=== PATIENT | female | born 1950 | race Caucasian/White ===

== ENCOUNTER 2018-11-22 16:59 | Inpatient (IN) | payer BC ==
[~2018-11-22] VITALS: Ht 157.5 cm; Wt 54.7 kg
[~2018-11-22 16:59] MED LIST: ACET325 PO; ACETAMINOPHEN650 MG PO; ASPI81CH PO; Augmentin 875-1 EACH PO; BUPR150ER PO; BUSP5 PO; CENTRUM SILVER1 EAC3 PO; ESCI10 PO; ESCI20 PO; LEVSOD100 PO; LEVSOD75 PO; LISI20 PO; LOPE2C PO; LORA1 PO; METF500 PO; METFORMIN HCL500 MG PO; Mucinex1200 MG PO; OMEP20ER PO; Pravastatin Sod40 MG PO; Prednisone20 MG PO; VITAMIN D35000 UNIT PO; ZESTORETIC 20-121 E1 PO
[2018-11-22 18:07] LABS: BASOPHILS ABSOLUTE AUTO 0.05 K/mm3 (0.00-0.23); BASOPHILS PERCENT AUTO 0 % (0-2); EOSINOPHILS ABSOLUTE AUTO 0.11 K/mm3 (0.00-0.68); EOSINOPHILS PERCENT AUTO 1 % (0-6); Hematocrit 41.5 % (33.0-51.0); Hemoglobin 13.5 g/dL (11.5-16.0); IMMATURE GRAN ABSOLUTE AUTO 0.07 K/mm3 (0.00-0.10); IMMATURE GRAN PERCENT AUTO 1 % (0-1); LYMPHOCYTES ABSOLUTE AUTO 1.78 K/mm3 (0.84-5.20); LYMPHOCYTES PERCENT AUTO 15 % (21-46); MONOCYTES ABSOLUTE AUTO 0.95 K/mm3 (0.16-1.47); MONOCYTES PERCENT AUTO 8 % (4-13); Mean Corpuscular HGB 32.1 pg (26.0-34.0); Mean Corpuscular HGB Conc 32.5 g/dL (31.5-36.5); Mean Corpuscular Volume 99 fL (80-100); Mean Platelet Volume 9.2 fL (9.1-12.4); NEUTROPHILS ABSOLUTE AUTO 8.58 K/mm3 (1.96-9.15); NEUTROPHILS PERCENT AUTO 74 % (41-73); Platelet Count 592 K/mm3 (150-400); RDW Coefficient Variation 19.5 % (11.7-14.2); RDW Standard Deviation 69.2 fL (35.1-46.3); Red Blood Cell Count 4.21 M/mm3 (3.80-5.20); White Blood Cell Count 11.54 K/mm3 (4.00-11.30)
[2018-11-22 18:22] LABS: Magnesium, Blood 1.6 mg/dL (1.6-2.4)
[2018-11-22 18:28] LABS: Albumin, Blood 3.7 g/dL (3.4-5.0); Albumin/Globulin Ratio 0.8 (0.8-1.8); Bilirubin, Total 0.2 mg/dL (0.1-1.0); Bun/Creatinine Ratio 31.4 (12.0-20.0); Calcium, Blood 9.2 mg/dL (8.5-10.1); Creatinine, Blood 2.42 mg/dL (0.40-1.00); Globulin, Blood 4.9 g/dL (2.2-4.0); Potassium, Blood 4.4 mmol/L (3.5-5.5); Thyroid Stimulating Hormone 1.29 uIU/mL (0.360-4.800); Total Protein, Blood 8.6 g/dL (6.4-8.2)
[2018-11-22 21:58] LABS: Adenovirus F 40/41 Not Detected (NOT DETECT); Astrovirus Not Detected (NOT DETECT); Campylobacter Sp Not Detected (NOT DETECT); Cryptosporidium Not Detected (NOT DETECT); Cyclospora Cayetanensis Not Detected (NOT DETECT); E. Coli O157 Not Detected (NOT DETECT); Entamoeba Histolytica Not Detected (NOT DETECT); Enteroaggregative E. coli-EAEC Not Detected (NOT DETECT); Enteropathogenic E. coli-EPEC Not Detected (NOT DETECT); Enterotoxigenic E. coli-ETEC Not Detected (NOT DETECT); Giardia Lamblia Not Detected (NOT DETECT); Norovirus GI/GII Not Detected (NOT DETECT); Plesiomonas Shigelloides Not Detected (NOT DETECT); Rotavirus A Not Detected (NOT DETECT); Salmonella Sp Not Detected (NOT DETECT); Sapovirus Not Detected (NOT DETECT); Shiga Toxin-prod E. coli-STEC Not Detected (NOT DETECT); Shigella/Enteroin E. coli-EIEC Not Detected (NOT DETECT); Vibrio Cholerae Not Detected (NOT DETECT); Vibrio Sp Not Detected (NOT DETECT); Yersinia Enterocolitica Not Detected (NOT DETECT)
--- NOTE | 2018-11-22 22:00 | NUR ---
ADMIT PT ARRIVED TO ICU 11 PCU STATUS AT 2124 VIA ER BED. PT IS AWAKE, ALERT, AND ORIENTED. PT STOOD UP FROM ER BED AND WALKED TO TOILET IN ICU ROOM. PT WITH LIQUID BM, STOOL SAMPLE COLLECTED AND SENT. PT COMPLAINS OF GENERALIZED FATIGUE, BUT DENIES PAIN OR DISCOMFORT. VITAL SIGNS STABLE. PT ON ROOM AIR. LR STARTED AT 125 ML/HR. WILL CONTINUE TO MONITOR.
[2018-11-22 22:41] LABS: Bun/Creatinine Ratio 34.7 (12.0-20.0); Calcium, Blood 8.4 mg/dL (8.5-10.1); Creatinine, Blood 1.96 mg/dL (0.40-1.00); Potassium, Blood 3.6 mmol/L (3.5-5.5)
--- NOTE | 2018-11-23 06:09 | NUR ---
SHIFT SUMMARY NO ACUTE CHANGES THIS SHIFT. PT HAS SLEPT OFF AND ON THROUGHOUT THE NIGHT. PT HAS DENIED PAIN, NAUSEA, OR SOB. PT CONTINUES TO HAVE DIARRHEA WHEN UP TO THE BSC. PT VOIDING WELL. VITAL SIGNS HAVE REMAINED STABLE. PT ON ROOM AIR. PT HAS REPOSITIONED SELF INDEPENDENTLY IN BED. LR INFUSING AT 125 ML/HR. WILL CONTINUE TO MONITOR AND REPORT OFF TO ONCOMING RN.
[2018-11-23 06:44] LABS: Hematocrit 33.1 % (33.0-51.0); Mean Corpuscular HGB Conc 33.2 g/dL (31.5-36.5); Mean Platelet Volume 9.2 fL (9.1-12.4); Platelet Count 511 K/mm3 (150-400); RDW Coefficient Variation 18.8 % (11.7-14.2); RDW Standard Deviation 65.4 fL (35.1-46.3); Red Blood Cell Count 3.45 M/mm3 (3.80-5.20); White Blood Cell Count 9.53 K/mm3 (4.00-11.30)
[2018-11-23 06:51] LABS: Albumin/Globulin Ratio 0.8 (0.8-1.8); Bilirubin, Total 0.3 mg/dL (0.1-1.0); Bun/Creatinine Ratio 40.6 (12.0-20.0); Calcium, Blood 8.5 mg/dL (8.5-10.1); Creatinine, Blood 1.43 mg/dL (0.40-1.00); Globulin, Blood 3.8 g/dL (2.2-4.0); Potassium, Blood 3.8 mmol/L (3.5-5.5); Total Protein, Blood 6.8 g/dL (6.4-8.2)
[2018-11-23 07:05] LABS: Mean Corpuscular Volume 96 fL (80-100)
--- NOTE | 2018-11-23 08:33 | NUR ---
ECHOCARDIOGRAM COMPLETE
--- NOTE | 2018-11-23 10:56 | NUR ---
0715-ASSUMED CARE OF PT. PT IS ALERT AND ORIENTED. DENIES PAIN. HELPED PT TO THE BEDSIDE COMMODE. PT IS STEADY ON HER FEET. 0800-PT SEEN BY DR. STARR UPDATED HIM OF PT'S STATUS. ECHOCARDIOGRAM GOING ON AT THIS TIME. 1056-CURRENTLY PT IS SLEEPING. DENIES PAIN PAIN.
--- NOTE | 2018-11-23 16:34 | NUR ---
TRIED TO CALL FOR REPORT. RN, NOT READY FOR REPORT YET.
--- NOTE | 2018-11-23 17:00 | NUR ---
REPORT GIVEN TO SAMAN CAMPOS IN MEDICAL FLOOR. PT WILL BE TRANSFERED TO ROOM 306.
--- NOTE | 2018-11-23 17:17 | NUR ---
PT WAS TRANSFERED TO ROOM 306 @ 1715
--- NOTE | 2018-11-23 17:24 | NUR ---
PATIENT TRASFERRED FROM ICU TO ROOM 306, REPORT RECEIVED FROM SAMAN MORRISSEY. PATIENT SWITCHED TO REGULAR DIET, DENIES ANY NAUSEA OR ABDOMINAL PAIN AT THIS TIME. SR ON TELE PER REPORT, AWAITING TELE BOX FROM PCU. DENIES ANY CHEST PAIN, LUNGS CLEAR, ON RA. TRANSFERRED FROM W/C TO BED WITH SBA. 20G IV TO L WRIST WNL AND SL. PATIENT ORIENTED TO ROOM AND USE OF CALL LIGHT. DENIES ANY NEEDS AT THIS TIME.
--- NOTE | 2018-11-24 01:22 | NUR ---
11/23/18 2102 PT LYING IN BED, DENIES ANY DISCOMFORT AT THIS TIME. TELE NSR AT 90. NO OTHER APPARENT SIGNS OF DISTRESS. CALL LIGHT IS IN REACH.
--- NOTE | 2018-11-24 01:24 | NUR ---
PT LYING IN BED, EYES CLOSED, APPEARS TO BE RESTING. BREATHING IS EVEN, UNLABORED. NO APPARENT SIGNS OF DISTRESS. CALL LIGHT IS IN REACH.
--- NOTE | 2018-11-24 01:24 | NUR ---
11/23/18 2310 PT REQUESTED AND RECIEVED TYLENOL. WILL EVAL FOR EFFECT. NO OTHER APPARENT SIGNS OF DISTRESS. CALL LIGHT IS IN REACH.
--- NOTE | 2018-11-24 03:35 | NUR ---
PT LYING IN BED, AWAKE, READING. DENIES NEED FOR ANYTHING AT THIS TIME. DIE CASTING SUPERVISOR JUST FINISHED HER VS. NO APPARENT SIGNS OF DISTRESS. CALL LIGHT IS IN REACH.
--- NOTE | 2018-11-24 03:36 | NUR ---
PT IS AAO X 4, ON RA. REPORTED HEADACHE, GOT TYLENOL. TELE NSR WITH HX OF PVC'S BUT NONE AT THIS TIME. BS WAS 90.
--- NOTE | 2018-11-24 05:44 | NUR ---
PT LYING IN BED, AWAKE, READING. NO APPARENT SIGNS OF DISTRESS. DENIES NEED FOR ANYTHING. CALL LIGHT IS IN REACH. NO OTHER CHANGES THIS SHIFT.
[2018-11-24 05:50] LABS: Anion Gap 8 mmol/L (6-16); Blood Urea Nitrogen 42 mg/dL (8-24); Bun/Creatinine Ratio 43.8 (12.0-20.0); CO2, Blood 19 mmol/L (21-32); Calcium, Blood 8.5 mg/dL (8.5-10.1); Chloride, Blood 111 mmol/L (98-108); Creatinine, Blood 0.96 mg/dL (0.40-1.00); Glomerular Filtration Rate >60 (60-); Glucose, Blood 90 mg/dL (70-99); Potassium, Blood 3.8 mmol/L (3.5-5.5); Sodium, Blood 138 mmol/L (136-145)
--- NOTE | 2018-11-24 07:54 | NUR ---
NOTIFIED DR. STARR OF PT'S BP OF 97/60 THIS AM AND THAT PT IS ASYMPTOMATIC. NO NEW ORDERS AT THIS TIME.
[2018-11-24] MEDS ORDERED: LOPE2C PO (12:10)
[2018-11-24] MEDS ORDERED: ACID REDUCER20 MG PO (12:11)
--- NOTE | 2018-11-24 12:58 | NUR ---
D/C INSTRUCTIONS PROVIDED AND EXPLAINED. IV TAKEN OUT. TELE REMOVED. MEDS FAXED TO [facility] IN [place]. PT D/C AT 1255 VIA AMBULATION WITH DAUGHTER.
== END 2018-11-24 12:55 | disposition home or self-care (01) | DRG 683 ==
LOC: ER 16:59 → ICUW 20:14 → MEDS 21:20 → ICUW 21:23 → MEDS 11-23 17:08
PROVIDERS: Hospitalist; Nurse Practitioner Acute Care; Physician Assistant; ADMIT Internal Medicine
DX: N17.9 Acute kidney failure, unspecified (principal); E87.2 Acidosis; E11.22 Type 2 diabetes mellitus with diabetic chronic kidney disease; N18.9 Chronic kidney disease, unspecified; I12.9 Hypertensive chronic kidney disease with stage 1 through stage 4 chronic kidney disease, or unspecified chronic kidney disease; E03.9 Hypothyroidism, unspecified; R19.7 Diarrhea, unspecified; E86.0 Dehydration; F32.9 Major depressive disorder, single episode, unspecified; R79.89 Other specified abnormal findings of blood chemistry; F41.9 Anxiety disorder, unspecified; M79.7 Fibromyalgia; M06.9 Rheumatoid arthritis, unspecified; J44.9 Chronic obstructive pulmonary disease, unspecified; E78.00 Pure hypercholesterolemia, unspecified; F17.210 Nicotine dependence, cigarettes, uncomplicated; Z95.1 Presence of aortocoronary bypass graft; Z79.84 Long term (current) use of oral hypoglycemic drugs; Z79.82 Long term (current) use of aspirin; Z79.899 Other long term (current) drug therapy; Z88.2 Allergy status to sulfonamides; Z88.8 Allergy status to other drugs, medicaments and biological substances
CPT/HCPCS: 36415; 71046; 80048; 80053; 82550; 82947; 83631; 83690; 83735; 84443; 84484; 85025; 85027; 87507; 89055; 93005; 93010; 93306; 96360; 99285-25; J1650; J7030; J7120

== ENCOUNTER 2018-12-11 19:57 | Emergency (ER) | payer BC ==
[~2018-12-11] VITALS: Ht 157.5 cm; Wt 51.7 kg
[~2018-12-11 19:57] MED LIST changes: +ACID REDUCER20 MG PO
[2018-12-11] MEDS ORDERED: Questran4 GM GT (20:15)
[2018-12-11] MEDS ORDERED: IMODIUM A-D2 M1 PO (20:17)
[2018-12-11 21:06] LABS: BASOPHILS ABSOLUTE AUTO 0.05 K/mm3 (0.00-0.23); BASOPHILS PERCENT AUTO 1 % (0-2); EOSINOPHILS PERCENT AUTO 1 % (0-6); Hematocrit 40.8 % (33.0-51.0); Hemoglobin 13.3 g/dL (11.5-16.0); IMMATURE GRAN ABSOLUTE AUTO 0.06 K/mm3 (0.00-0.10); IMMATURE GRAN PERCENT AUTO 1 % (0-1); LYMPHOCYTES ABSOLUTE AUTO 1.34 K/mm3 (0.84-5.20); LYMPHOCYTES PERCENT AUTO 12 % (21-46); MONOCYTES ABSOLUTE AUTO 0.98 K/mm3 (0.16-1.47); MONOCYTES PERCENT AUTO 9 % (4-13); Mean Corpuscular HGB 32.9 pg (26.0-34.0); Mean Corpuscular HGB Conc 32.6 g/dL (31.5-36.5); Mean Corpuscular Volume 101 fL (80-100); Mean Platelet Volume 9.1 fL (9.1-12.4); NEUTROPHILS ABSOLUTE AUTO 8.38 K/mm3 (1.96-9.15); NEUTROPHILS PERCENT AUTO 77 % (41-73); NRBC ABSOLUTE 0.02 K/mm3 (0.00-0.02); NRBC Auto 0.2 /100 WBC (0.0-0.2); Platelet Count 747 K/mm3 (150-400); RDW Coefficient Variation 19.3 % (11.7-14.2); RDW Standard Deviation 72.1 fL (35.1-46.3); Red Blood Cell Count 4.04 M/mm3 (3.80-5.20); White Blood Cell Count 10.91 K/mm3 (4.00-11.30)
[2018-12-11 21:27] LABS: Albumin, Blood 3.6 g/dL (3.4-5.0); Albumin/Globulin Ratio 0.7 (0.8-1.8); Bilirubin, Total 0.2 mg/dL (0.1-1.0); Bun/Creatinine Ratio 22.1 (12.0-20.0); Calcium, Blood 9.9 mg/dL (8.5-10.1); Creatinine, Blood 1.54 mg/dL (0.40-1.00); Globulin, Blood 5.2 g/dL (2.2-4.0); Potassium, Blood 3.9 mmol/L (3.5-5.5); Total Protein, Blood 8.8 g/dL (6.4-8.2); Troponin I 0.019 ng/mL (0.000-0.040)
== END 2018-12-11 22:35 | disposition home or self-care (01) ==
LOC: ER 19:57
PROVIDERS: Emergency Medicine
DX: K52.9 Noninfective gastroenteritis and colitis, unspecified (principal); E86.0 Dehydration; I12.9 Hypertensive chronic kidney disease with stage 1 through stage 4 chronic kidney disease, or unspecified chronic kidney disease; N18.9 Chronic kidney disease, unspecified; E11.22 Type 2 diabetes mellitus with diabetic chronic kidney disease; E78.00 Pure hypercholesterolemia, unspecified; F32.9 Major depressive disorder, single episode, unspecified; E03.9 Hypothyroidism, unspecified; F17.210 Nicotine dependence, cigarettes, uncomplicated; Z88.8 Allergy status to other drugs, medicaments and biological substances; Z88.2 Allergy status to sulfonamides; Z88.1 Allergy status to other antibiotic agents; Z79.899 Other long term (current) drug therapy; Z79.82 Long term (current) use of aspirin
CPT/HCPCS: 80053; 84484; 85025; 93005; 93010; 96360; 99284-25; J7030

== ENCOUNTER 2019-01-03 15:22 | Emergency (ER) | payer BC ==
[~2019-01-03] VITALS: Ht 157.5 cm; Wt 54.4 kg
[~2019-01-03 15:22] MED LIST changes: +IMODIUM A-D2 M1 PO; +Questran4 GM GT
[2019-01-03 15:56] LABS: BASOPHILS ABSOLUTE AUTO 0.03 K/mm3 (0.00-0.23); BASOPHILS PERCENT AUTO 0 % (0-2); EOSINOPHILS ABSOLUTE AUTO 0.04 K/mm3 (0.00-0.68); EOSINOPHILS PERCENT AUTO 0 % (0-6); Hematocrit 41.2 % (33.0-51.0); Hemoglobin 14.1 g/dL (11.5-16.0); IMMATURE GRAN ABSOLUTE AUTO 0.06 K/mm3 (0.00-0.10); IMMATURE GRAN PERCENT AUTO 1 % (0-1); LYMPHOCYTES ABSOLUTE AUTO 1.56 K/mm3 (0.84-5.20); LYMPHOCYTES PERCENT AUTO 16 % (21-46); MONOCYTES ABSOLUTE AUTO 1.12 K/mm3 (0.16-1.47); MONOCYTES PERCENT AUTO 12 % (4-13); Mean Corpuscular HGB 33.7 pg (26.0-34.0); Mean Corpuscular HGB Conc 34.2 g/dL (31.5-36.5); Mean Corpuscular Volume 98 fL (80-100); NEUTROPHILS ABSOLUTE AUTO 6.97 K/mm3 (1.96-9.15); NEUTROPHILS PERCENT AUTO 71 % (41-73); Platelet Count 700 K/mm3 (150-400); RDW Coefficient Variation 15.6 % (11.7-14.2); RDW Standard Deviation 56.4 fL (35.1-46.3); Red Blood Cell Count 4.19 M/mm3 (3.80-5.20); White Blood Cell Count 9.78 K/mm3 (4.00-11.30)
[2019-01-03 16:20] LABS: Albumin, Blood 3.7 g/dL (3.4-5.0); Albumin/Globulin Ratio 0.8 (0.8-1.8); Bilirubin, Total 0.5 mg/dL (0.1-1.0); Bun/Creatinine Ratio 35.6 (12.0-20.0); Calcium, Blood 9.6 mg/dL (8.5-10.1); Creatinine, Blood 1.32 mg/dL (0.40-1.00); Globulin, Blood 4.4 g/dL (2.2-4.0); Total Protein, Blood 8.1 g/dL (6.4-8.2)
== END 2019-01-03 18:27 | disposition home or self-care (01) ==
LOC: ER 15:22
PROVIDERS: Physician Assistant
DX: K52.9 Noninfective gastroenteritis and colitis, unspecified (principal); E11.9 Type 2 diabetes mellitus without complications; J44.9 Chronic obstructive pulmonary disease, unspecified; E03.9 Hypothyroidism, unspecified; I12.9 Hypertensive chronic kidney disease with stage 1 through stage 4 chronic kidney disease, or unspecified chronic kidney disease; N18.9 Chronic kidney disease, unspecified; E78.5 Hyperlipidemia, unspecified; F17.210 Nicotine dependence, cigarettes, uncomplicated
CPT/HCPCS: 80053; 83690; 83735; 85025; 96361; 96374; 99284-25; J2405; J7030

== ENCOUNTER 2019-01-04 08:24 | Day surgery (SDC) | payer BC ==
--- NOTE | 2019-01-04 08:48 | NUR ---
Patient States Post-Procedure ride home has been arranged. History, Chart, Medications and Allergies reviewed before start of procedure.Lungs clear T/O to Auscultation.
--- NOTE | 2019-01-04 09:36 | NUR ---
01/04/19 0936 Jonah Bullock History, Chart, Medications and Allergies reviewed before start of procedure.MONITOR INTACT WITH CONTINUOUS PULSE OXIMETRY AND INTERMITTENT BP.3-LEAD EKG REVIEWED WITH PHYSICIAN PRIOR TO START OF PROCEDURE.O2 VIA N/C INTACT THROUGHOUT SEDATION/PROCEDURE. Patient confirms NPO status and agrees with scheduled surgery.PATIENT DETERMINED TO BE ASA APPROPRIATE FOR PROPOFOL SEDATION PRIOR TO START OF PROCEDURE BY DR. THOMAS.
--- NOTE | 2019-01-04 10:16 | NUR ---
PT TO STEP. SLEEPY, WAKES TO VOICE. DENIES COMPLAINTS.
--- NOTE | 2019-01-04 10:55 | NUR ---
WRITTEN AND VERBAL D/C INSTUCTIONS GIVENTO PT WITH STATED UNDERSTANDING.
== END 2019-01-04 22:35 | disposition home or self-care (01) ==
LOC: ORSCMMR 08:24 → ORD 09:30 → ORSCMMR 22:35
PROVIDERS: Internal Medicine Gastroenterology
PROC: 0DBK8ZX Excision of Ascending Colon, Via Natural or Artificial Opening Endoscopic, Diagnostic (ICD-10-PCS; principal; 2019-01-04 09:30)
PROC: 0DBL8ZX Excision of Transverse Colon, Via Natural or Artificial Opening Endoscopic, Diagnostic (ICD-10-PCS; principal; 2019-01-04 09:30)
PROC: 0DBN8ZX Excision of Sigmoid Colon, Via Natural or Artificial Opening Endoscopic, Diagnostic (ICD-10-PCS; principal; 2019-01-04 09:30)
DX: R19.7 Diarrhea, unspecified (principal); K52.831 Collagenous colitis; K63.5 Polyp of colon; I25.810 Atherosclerosis of coronary artery bypass graft(s) without angina pectoris; E11.9 Type 2 diabetes mellitus without complications; I10 Essential (primary) hypertension; Z79.82 Long term (current) use of aspirin; Z79.899 Other long term (current) drug therapy
CPT/HCPCS: 82947; 88305; J7120

== ENCOUNTER 2019-02-28 09:29 | Day surgery (SDC) | payer BC ==
[~2019-02-28] VITALS: Ht 157.5 cm; Wt 50.4 kg
[~2019-02-28 09:29] MED LIST changes: +Aspirin EC81 MG PO; +Lisinopril2.5 MG PO
--- NOTE | 2019-02-28 09:47 | NUR ---
Ambulatory in Day Surgery History, Chart, Medications and Allergies reviewed before start of procedure.LUNGS WITH SCATTERED RHONCHI THROUGH OUT. PT HAS HISTORY OF COPD. SATS>90% ON RA. DR. THOMAS MADE AWARE OF ADVENTICIOUS LUNG SOUNDS. NO NEW ORDERS.Patient confirms NPO status and agrees with scheduled surgery. Patient States Post-Procedure ride home has been arranged.
--- NOTE | 2019-02-28 10:00 | NUR ---
02/28/19 Arcadio Booker PATIENT DETERMINED TO BE ASA APPROPRIATE FOR PROPOFOL SEDATION PRIOR TO START OF PROCEDURE BY 3-LEAD EKG REVIEWED WITH PHYSICIAN PRIOR TO START OF PROCEDURE.MONITOR INTACT WITH CONTINUOUS PULSE OXIMETRY AND INTERMITTENT BP.PATIENT CONFIRMS NPO STATUS AND AGREES WITH SCHEDULED PROCEDURE.O2 VIA N/C INTACT THROUGHOUT SEDATION/PROCEDURE. HURRICAINE SPRAY TO OROPHARYX.Bite Block Placed
--- NOTE | 2019-02-28 11:23 | NUR ---
1025 UP TO BR, STEADY GAIT. RANDELL PO WELL. 1045 BACK TO BED TO DISCHARGE INSTRUCTIONS.
== END 2019-02-28 22:37 | disposition home or self-care (01) ==
LOC: ORSCMMR 09:29 → ORD 10:30 → ORSCMMR 10:30
PROVIDERS: Internal Medicine Gastroenterology
PROC: 0DB48ZX Excision of Esophagogastric Junction, Via Natural or Artificial Opening Endoscopic, Diagnostic (ICD-10-PCS; principal; 2019-02-28 10:30)
PROC: 0DB98ZX Excision of Duodenum, Via Natural or Artificial Opening Endoscopic, Diagnostic (ICD-10-PCS; principal; 2019-02-28 10:30)
PROC: 0DB68ZX Excision of Stomach, Via Natural or Artificial Opening Endoscopic, Diagnostic (ICD-10-PCS; principal; 2019-02-28 10:30)
DX: D50.0 Iron deficiency anemia secondary to blood loss (chronic) (principal); K26.0 Acute duodenal ulcer with hemorrhage; K29.80 Duodenitis without bleeding; K29.70 Gastritis, unspecified, without bleeding; K21.9 Gastro-esophageal reflux disease without esophagitis; K44.9 Diaphragmatic hernia without obstruction or gangrene; K22.2 Esophageal obstruction; E11.9 Type 2 diabetes mellitus without complications; I10 Essential (primary) hypertension; Z79.899 Other long term (current) drug therapy; F17.210 Nicotine dependence, cigarettes, uncomplicated; Z79.82 Long term (current) use of aspirin
CPT/HCPCS: 82947; J2704; J7120

== ENCOUNTER 2019-12-03 09:32 | Day surgery (SDC) | payer BC ==
[~2019-12-03] VITALS: Ht 188 cm; Wt 51.0 kg
[~2019-12-03 09:32] MED LIST changes: +ALBU3IS INH; +Arthritis Pain650 M1 PO; +FURO20 PO; +Loperamide2 MG PO; +POTA10T PO; +VITAMIN D350 MCG PO
[2019-12-03] MEDS ORDERED: CLOP75 (13:28)
--- NOTE | 2019-12-03 16:51 | NUR ---
AT ABOUT 1530, PT TRIED TO AMB TO BTR AND LEGS BILAT STARTED BUCKELING REPEATEDLY. 2 PERSON ASSIST TO BTR, DR DURÁN NOTIFIED. DR DURÁN IN AT 1615 FOR ASSESSMENT, ORDER IS TO TAKE PT TO ED FOR FURTHER EVALUATION FOR LEG WEAKNESS FOLLOWING AN ANGIOGRAM. R TRBAND REMOVED, DRESSING PLACED WTIH R WRIST SPLINT IN PLACE, IV LEFT IN FOR ED, PT ASSISTED TO WC AND TAKEN BY THIS RN TO ED FOR ADMIT AND EVALUATION. FAMILY PRESENT ENTIRE TIME PT IN RECOVERY ROOM AND PRESENT W PT IN ED WAITING ROOM.
== END 2019-12-03 16:30 | disposition home or self-care (01) ==
LOC: MHTC 09:32
PROC: B201YZZ Plain Radiography of Multiple Coronary Arteries using Other Contrast (ICD-10-PCS; principal; 2019-12-03)
PROC: 4A023N7 Measurement of Cardiac Sampling and Pressure, Left Heart, Percutaneous Approach (ICD-10-PCS; principal; 2019-12-03)
DX: I25.119 Atherosclerotic heart disease of native coronary artery with unspecified angina pectoris (principal); I25.719 Atherosclerosis of autologous vein coronary artery bypass graft(s) with unspecified angina pectoris; E11.9 Type 2 diabetes mellitus without complications; I11.9 Hypertensive heart disease without heart failure; I27.81 Cor pulmonale (chronic); J44.9 Chronic obstructive pulmonary disease, unspecified; E03.9 Hypothyroidism, unspecified; F17.200 Nicotine dependence, unspecified, uncomplicated; I45.10 Unspecified right bundle-branch block; E78.5 Hyperlipidemia, unspecified; Z79.82 Long term (current) use of aspirin; Z79.899 Other long term (current) drug therapy; Z88.2 Allergy status to sulfonamides; Z88.1 Allergy status to other antibiotic agents; Z88.8 Allergy status to other drugs, medicaments and biological substances; Z79.02 Long term (current) use of antithrombotics/antiplatelets
CPT/HCPCS: 93461; 93567; 99152; 99153; C1769; C1894; J0690; J1644; J2250; J3010; J7030; J7040; Q9967

== ENCOUNTER 2019-12-03 16:38 | Emergency (ER) | payer BC ==
[~2019-12-03] VITALS: Ht 157.5 cm; Wt 54.4 kg
[~2019-12-03 16:38] MED LIST changes: +CLOP75
[2019-12-03 18:05] LABS: Calcium, Ionized (POC) 1.16 mmol/L (1.10-1.46); Chloride (POC) 104 mmol/L (98-108); Creatinine (POC) 0.8 mg/dL (0.6-1.0); Glucose (ISTAT POC) 86 mg/dL (70-99); Hemoglobin (POC) 14.6 g/dL (12.0-16.0); Potassium (POC) 3.9 mmol/L (3.5-5.5); Sodium (POC) 133 mmol/L (135-148); Total CO2 (POC) 20 mmol/L (21-32)
== END 2019-12-03 19:30 | disposition home or self-care (01) ==
LOC: ER 16:38
PROVIDERS: Emergency Medicine
DX: S84.802A Injury of other nerves at lower leg level, left leg, initial encounter (principal); S84.801A Injury of other nerves at lower leg level, right leg, initial encounter; I10 Essential (primary) hypertension; E11.9 Type 2 diabetes mellitus without complications; I25.10 Atherosclerotic heart disease of native coronary artery without angina pectoris; F32.9 Major depressive disorder, single episode, unspecified; E03.9 Hypothyroidism, unspecified; Z98.890 Other specified postprocedural states; Z88.8 Allergy status to other drugs, medicaments and biological substances; Z88.2 Allergy status to sulfonamides; Z79.899 Other long term (current) drug therapy; Z79.01 Long term (current) use of anticoagulants; Z79.82 Long term (current) use of aspirin; X58.XXXA Exposure to other specified factors, initial encounter
CPT/HCPCS: 72131; 80047; 85014; 99284-25

== ENCOUNTER 2021-08-07 13:17 | Inpatient (IN) | payer BC, OTHER ==
[~2021-08-07] VITALS: Ht 157.5 cm; Wt 53.7 kg
[~2021-08-07 13:17] MED LIST changes: +CHOLECALCIFEROL PO; -VITAMIN D350 MCG PO
[2021-08-07 14:30] LABS: BASOPHILS ABSOLUTE AUTO 0.04 K/mm3 (0.00-0.23); BASOPHILS PERCENT AUTO 0 % (0-2); EOSINOPHILS ABSOLUTE AUTO 0.01 K/mm3 (0.00-0.68); EOSINOPHILS PERCENT AUTO 0 % (0-6); Hematocrit 50.7 % (33.0-51.0); Hemoglobin 17.1 g/dL (11.5-16.0); IMMATURE GRAN ABSOLUTE AUTO 0.07 K/mm3 (0.00-0.10); IMMATURE GRAN PERCENT AUTO 1 % (0-1); LYMPHOCYTES ABSOLUTE AUTO 0.88 K/mm3 (0.84-5.20); LYMPHOCYTES PERCENT AUTO 7 % (21-46); MONOCYTES ABSOLUTE AUTO 0.79 K/mm3 (0.16-1.47); MONOCYTES PERCENT AUTO 6 % (4-13); Mean Corpuscular HGB 34.9 pg (26.0-34.0); Mean Corpuscular HGB Conc 33.7 g/dL (31.5-36.5); Mean Corpuscular Volume 104 fL (80-100); Mean Platelet Volume 10.7 fL (9.1-12.4); NEUTROPHILS ABSOLUTE AUTO 10.91 K/mm3 (1.96-9.15); NEUTROPHILS PERCENT AUTO 86 % (41-73); NRBC ABSOLUTE 0.04 K/mm3 (0.00-0.02); NRBC Auto 0.3 /100 WBC (0.0-0.2); Platelet Count 385 K/mm3 (150-400); RDW Coefficient Variation 17.4 % (11.7-14.2); RDW Standard Deviation 66.3 fL (35.1-46.3)
[2021-08-07 14:58] LABS: Albumin, Blood 2.2 g/dL (3.4-5.0); Albumin/Globulin Ratio 0.5 (0.8-1.8); Bilirubin, Total 0.5 mg/dL (0.1-1.0); Bun/Creatinine Ratio 40.5 (12.0-20.0); Calcium, Blood 9.3 mg/dL (8.5-10.1); Creatinine, Blood 1.73 mg/dL (0.40-1.00); Globulin, Blood 4.1 g/dL (2.2-4.0); Potassium, Blood 7.1 mmol/L (3.5-5.5); Total Protein, Blood 6.3 g/dL (6.4-8.2)
[2021-08-07] MEDS ORDERED: ASPI81CH PO (17:00)
[2021-08-07] MEDS ORDERED: CLOP75 PO (17:01)
[2021-08-07] MEDS ORDERED: ESCI20 PO (17:02)
[2021-08-07] MEDS ORDERED: FURO20 PO (17:03)
[2021-08-07] MEDS ORDERED: SYNTHROID100 MC8 PO (17:04)
[2021-08-07] MEDS ORDERED: LISI5 PO (17:05)
[2021-08-07] MEDS ORDERED: IMODIUM A-D2 M1 PO (17:07)
[2021-08-07] MEDS ORDERED: K-Dur20 MEQ PO (17:08)
[2021-08-08 03:42] LABS: BASOPHILS ABSOLUTE AUTO 0.01 K/mm3 (0.00-0.23); BASOPHILS PERCENT AUTO 0 % (0-2); EOSINOPHILS PERCENT AUTO 0 % (0-6); Hematocrit 48.4 % (33.0-51.0); Hemoglobin 16.2 g/dL (11.5-16.0); IMMATURE GRAN ABSOLUTE AUTO 0.07 K/mm3 (0.00-0.10); IMMATURE GRAN PERCENT AUTO 1 % (0-1); LYMPHOCYTES ABSOLUTE AUTO 0.37 K/mm3 (0.84-5.20); LYMPHOCYTES PERCENT AUTO 3 % (21-46); MONOCYTES PERCENT AUTO 1 % (4-13); Mean Corpuscular HGB 35.2 pg (26.0-34.0); Mean Corpuscular HGB Conc 33.5 g/dL (31.5-36.5); Mean Corpuscular Volume 105 fL (80-100); Mean Platelet Volume 10.2 fL (9.1-12.4); NEUTROPHILS ABSOLUTE AUTO 10.54 K/mm3 (1.96-9.15); NEUTROPHILS PERCENT AUTO 95 % (41-73); NRBC ABSOLUTE 0.03 K/mm3 (0.00-0.02); NRBC Auto 0.3 /100 WBC (0.0-0.2); Platelet Count 353 K/mm3 (150-400); RDW Coefficient Variation 17.2 % (11.7-14.2); RDW Standard Deviation 65.9 fL (35.1-46.3); White Blood Cell Count 11.09 K/mm3 (4.00-11.30)
[2021-08-08 04:10] LABS: Albumin/Globulin Ratio 0.5 (0.8-1.8); Bilirubin, Total 0.4 mg/dL (0.1-1.0); Bun/Creatinine Ratio 43.2 (12.0-20.0); Calcium, Blood 8.5 mg/dL (8.5-10.1); Creatinine, Blood 1.25 mg/dL (0.40-1.00); Globulin, Blood 3.7 g/dL (2.2-4.0); Magnesium, Blood 2.2 mg/dL (1.6-2.4); Potassium, Blood 5.2 mmol/L (3.5-5.5); Total Protein, Blood 5.7 g/dL (6.4-8.2)
[2021-08-08 05:03] LABS: SARS-Cov-2 (COVID-19) PCR, MMC NEGATIVE (NEGATIVE)
--- NOTE | 2021-08-08 06:21 | NUR ---
SHIFT SUMMARY PT ALERT WITH SOME CONFUSION. PT HAS BEE TALKING TO SELF T/O THE NIGHT AND HAS ATTEMPTED TO GET OUT OF BED. BED ALARM ON. HAS DENIED CHEST PAIN OR SHORTNESS OF BREATH. THERE HAVE BEEN NO ACUTE CHANGES T/O THE NIGHT. PT'S BP HAS BEEN SOFT. SPO2 HAS BEEN ABOVE 90% ON 3L O2, NC. PT USES 3L BASELINE AT HOME. PT IS ABLE TO GET UP TO THE COMMODE WITH MOSERATE ASSITANCE. CALL LIGHT IS WITHIN REACH.
--- NOTE | 2021-08-08 14:08 | NUR ---
2296-1540: SAFE HANDOFF REC'D, ASSUMED CARE OF PT. PT ADMITTED FOR ENTERITIS AND PNA AND WAS FOUND TO HAVE SLIGHLY ELEVATED TROPONIN LEVELS. PT IS RESTING IN BED, ORIENTED TO PERSON AND PLACE, SEEMS FORGETFUL AND SPEECH IS SOMEWHAT RAMBLING, SHE DENIES PAIN AT THIS TIME. [id number]: PT HAS ORDER TO CONTINUE WITH SERIAL TROPONIN LEVELS THE LAST ONE WAS STILL TRENDING UP, ALSO HAS AN ECHO ORDERED. 7620-2181: PT SLIGHLY MORE RESTLESS AND CONFUSED, VSS, BED ALARM IS ON FOR SAFETY.
--- NOTE | 2021-08-08 14:21 | NUR ---
echocardiogram complete
--- NOTE | 2021-08-08 16:15 | NUR ---
PT IS A TRANFER FROM [facility] AT 1545.PT IS ALERT ORIENTED TO SLEF.PT IS VERY CONFUSED AND FORGETFUL.PT IS ON 2L NC,PT IS ON TELE RUNNING SINUS RYTHM AT RATE 85.PT NAIL BEDS AND FINGERS ARE PURPLE. PT LUNGS DIMINISHED IN BASES.PT IS BED SLEEPING,CALL LIGHT IN REACH WILL CONTINUE TO MONITOR.
[2021-08-08] MEDS ORDERED: TORSE20 PO (21:39)
[2021-08-08] MEDS ORDERED: Imdur30 MG PO (21:40)
[2021-08-08] MEDS ORDERED: ZYRTEC10 MG PO (21:42)
[2021-08-08] MEDS ORDERED: ONDA4ODT SL (21:43)
[2021-08-08] MEDS ORDERED: BUDESONIDE EC3 M5 PO (21:44)
[2021-08-09 00:51] LABS: BASOPHILS ABSOLUTE AUTO 0.03 K/mm3 (0.00-0.23); BASOPHILS PERCENT AUTO 0 % (0-2); EOSINOPHILS ABSOLUTE AUTO 0.01 K/mm3 (0.00-0.68); EOSINOPHILS PERCENT AUTO 0 % (0-6); Hematocrit 47.6 % (33.0-51.0); Hemoglobin 15.8 g/dL (11.5-16.0); IMMATURE GRAN ABSOLUTE AUTO 0.17 K/mm3 (0.00-0.10); IMMATURE GRAN PERCENT AUTO 1 % (0-1); LYMPHOCYTES ABSOLUTE AUTO 0.91 K/mm3 (0.84-5.20); LYMPHOCYTES PERCENT AUTO 6 % (21-46); MONOCYTES ABSOLUTE AUTO 1.01 K/mm3 (0.16-1.47); MONOCYTES PERCENT AUTO 6 % (4-13); Mean Corpuscular HGB Conc 33.2 g/dL (31.5-36.5); Mean Corpuscular Volume 105 fL (80-100); Mean Platelet Volume 9.9 fL (9.1-12.4); NEUTROPHILS ABSOLUTE AUTO 13.68 K/mm3 (1.96-9.15); NEUTROPHILS PERCENT AUTO 86 % (41-73); NRBC ABSOLUTE 0.08 K/mm3 (0.00-0.02); NRBC Auto 0.5 /100 WBC (0.0-0.2); Platelet Count 345 K/mm3 (150-400); RDW Coefficient Variation 17.6 % (11.7-14.2); RDW Standard Deviation 67.2 fL (35.1-46.3); Red Blood Cell Count 4.52 M/mm3 (3.80-5.20); White Blood Cell Count 15.81 K/mm3 (4.00-11.30)
[2021-08-09 01:19] LABS: Albumin, Blood 2.2 g/dL (3.4-5.0); Albumin/Globulin Ratio 0.6 (0.8-1.8); Bilirubin, Total 0.5 mg/dL (0.1-1.0); Bun/Creatinine Ratio 46.1 (12.0-20.0); Calcium, Blood 8.6 mg/dL (8.5-10.1); Globulin, Blood 3.5 g/dL (2.2-4.0); Magnesium, Blood 2.1 mg/dL (1.6-2.4); Phosphorus, Blood 2.4 mg/dL (2.5-4.9); Potassium, Blood 4.6 mmol/L (3.5-5.5); Thyroid Stimulating Hormone 0.964 uIU/mL (0.360-4.800); Total Protein, Blood 5.7 g/dL (6.4-8.2); Troponin I 0.147 ng/mL (0.000-0.040)
--- NOTE | 2021-08-09 02:07 | NUR ---
TROPONIN TROPONIN BUMPED FROM 0.138 TO 0.147 WITH LAB DRAW. PT IS RESTING IN BED SLEEPING, NO COMPLAINTS OF CHEST PAIN. DR. ENRIQUEZ CALLED AND NOTIFIED OF INCREASED TROPONIN. NO NEW ORDERS GIVEN.
--- NOTE | 2021-08-09 05:07 | NUR ---
SHIFT SUMMARY PT HAS SLEPT MOST OF THE NIGHT. PT IS CONFUSED BUT DOES ANSWER SOME QUESTIONS APPROPRIATELY AND IS ABLE TO FOLLOW DIRECTIONS. PT BECOMES SOB WITH EXERTION, AND SEEMS LABORED EVEN AT REST AT TIMES, RT CALLED TO EVALUATE. LUNGS DIMINISHED T/O. O2 INCREASED FROM 2L TO 4L OVERNIGHT. DR. ENRIQUEZ CALLED AND NOTIFIED OF INCREASED O2 NEEDS AND SOB, AND BREATHING TREATMENTS ORDERED. SATS CURRENTLY AT 94% ON 4L. SLIGHT BUMP IN TROPONIN THIS SHIFT, ZOE ALSO NOTIFIED, NO ADDITIONAL ORDERS GIVEN FOR TROPONIN. PT DENIES CHEST PAIN. IVF AND IV ANTIBIOTICS CONTINUED ORDERED. NSR ON TELE. BED ALARM IN PLACE FOR SAFETY. BED IN LOWEST POSITION, CALL LIGHT WITHIN REACH.
[2021-08-09 17:37] LABS: Source, Urine Clean Catch
[2021-08-09 17:48] LABS: Bilirubin, Urine Neg (Neg); Blood, Urine 1+ (Neg); Glucose Qualitative, Urine Neg (Neg); Ketones, Urine Neg (Neg); Leukocyte Esterase, Urine 3+ (Neg); Nitrite, Urine Pos (Neg); Protein, Urine 3+ (Neg); Urobilinogen, Urine 1+ (Normal)
[2021-08-09 17:59] LABS: Appearance, Urine Hazy (Clear); Color, Urine Amber (P-Yellow)
[2021-08-09 18:02] LABS: Squamous Epithelial Cells Few /hpf (Few)
[2021-08-09 18:03] LABS: Bacteria Mod /hpf; Mucus Light (0-Heavy)
[2021-08-09 18:04] LABS: Yeast/Fungi Urine Rare /hpf
[2021-08-09 18:05] LABS: Granular Casts Rare /lpf (0); Hyaline Casts Rare /lpf (0-2)
--- NOTE | 2021-08-09 18:12 | NUR ---
PT IS IN BED,CONFUSED,PT IS RETAIN FLUID,BLADDER SCAN SHOW 238 ML,PT VOID 100 ML.IF PT RETAIN MORE THAN 300 PUT A MURDOCK IN PER DR ORDERS.NO ACUTE EVENTS T/O SHIFT,GAVE UPDATE TO PT DAUGHTER.SENT URINE SAMPLE TO LAB. PT DAUGHTER STATED THAT'S NOT LIKE HER MOM TO BE CONFUSED.PT FEET,FINGER AND NAILS BED ARE PURPLE,PT IS O2 DEPENDENT AT HOME,PT IS ON 4L NC,PT IS ON TELE RUNNING SINUS RYTHM 84 WITH PVC.PT DIET ADVANCED TO FULL LIQUID.PT IS RESTING IN BED,CALL LIGHT IN REACH WILL CONTINUE TO MONITOR.
[2021-08-09 22:44] LABS: PCO2 Arterial 25.4 mmHg (35-45); PO2 Arterial 166 mmHg (80-100); pH Blood Arterial 7.07 (7.35-7.45)
[2021-08-09 23:30] LABS: BASOPHILS ABSOLUTE AUTO 0.15 K/mm3 (0.00-0.23); BASOPHILS PERCENT AUTO 1 % (0-2); Hemoglobin 14.4 g/dL (11.5-16.0); LYMPHOCYTES ABSOLUTE AUTO 0.74 K/mm3 (0.84-5.20); LYMPHOCYTES PERCENT AUTO 4 % (21-46); MONOCYTES ABSOLUTE AUTO 1.24 K/mm3 (0.16-1.47); MONOCYTES PERCENT AUTO 7 % (4-13); Mean Corpuscular HGB 35.6 pg (26.0-34.0); Mean Platelet Volume 10.4 fL (9.1-12.4); NRBC Auto 1.2 /100 WBC (0.0-0.2); Platelet Count 241 K/mm3 (150-400); RDW Coefficient Variation 18.7 % (11.7-14.2); RDW Standard Deviation 76.4 fL (35.1-46.3); Red Blood Cell Count 4.04 M/mm3 (3.80-5.20); White Blood Cell Count 17.08 K/mm3 (4.00-11.30)
--- NOTE | 2021-08-09 23:38 | NUR ---
RAPID RESPONSE UPON MY SHIFT ASSESSMENT PT ON 4L O2, AND SATS IN THE LOW 90'S. WHEN I LISTENED TO ARIANNA LUNGS I HEARD FINE CRACKLES IN THE BASES. THIS IS NEW FOR LATASHA SHE DID NOT HAVE CRACKLES IN HER PRIOR ASSESSMENTS. VITALS ARE STABLE AND AT PT BASELINE. ASIDE FROM THIS FINDING, ASSESSMENT OTHERWISE UNCHANGED. PT AWAKE, ALERT AND RESPONDING TO THIS RN. PT WAS RECEIVING NS AT 100 ML/HR AND HAS RECEIVED FLUIDS CONTINOUSLY SINCE ADMISSION FOR DEHYDRATION. PT HAS HISTORY OF HEART FAILURE, PULMONARY FIBROSIS, AND IS CURRENLY BEING TREATED THIS ADMISSION FOR PNEUMONIA. PT TRANSFERED FROM PCU TUESDAY AFTERNOON. I NOTIFIED SLIP DUMPER OSWALDO JUAN OF MY ASSESSMENT FINDINGS AND PER DISCUSSION WITH HER SHE STATES TO NOTIFY RESPIRATORY FOR AN EVALUATION AND TO CALL THE DOCTOR TO NOTIFY HIM OF THIS CHANGE AND TO POSSIBLY D/C IV FLUIDS. RT TO CALLED TO EVALUATE. BEFORE CALLING THE DOCTOR I RETURNED TO THE ROOM TO ROUND ON PT ONCE MORE AND I FOUND PT WITH ORTHOPNEIC BREATHING, FINGERS AND TOES WERE DUSKY. PT WAS AWAKE, AND SHE WAS RESPONDING TO STAFF, BUT BREATHING WAS SEVERLY LABOROED. SLIP DUMPER NOTIFIED TO RESPOND TO THE ROOM AND RAPID RESPOND WAS INITIATED AT 2214. MEDICAL TEAM RESPONDED TO ROOM. VERIFICATION CLERK, RT, AND HOSPITALIST AT BEDSIDE WITH PT. SBAR GIVEN TO ATTENDING PHYSICAN. NONBREATHER PLACED ON PT BY SLIP DUMPER OSWALDO JUAN AND O2 INCREASED TO 15L. ABG AND IV LASIKS ORDERED BY DR. JOHNSON. IVF STOPPED. RT PLACED A V60 BIPAP. 2300 RECEIVED TRANSFER ORDER BY DR. JOHNSON FOR TRANSFER TO ICU 3. CALL PLACED TO VERIFICATION CLERK FOR REPORT. PT TRANSFERRED TO ICU ON BIPAP WITH BELONGINGS IN PLACE. 2325 ANA CALLED AND NOTIFIED OF STATUS CHANGED AND TRANSFER TO ICU.
[2021-08-09 23:47] LABS: EOSINOPHILS ABSOLUTE AUTO 2.35 K/mm3 (0.00-0.68); EOSINOPHILS PERCENT AUTO 14 % (0-6); IMMATURE GRAN ABSOLUTE AUTO 2.48 K/mm3 (0.00-0.10); IMMATURE GRAN PERCENT AUTO 15 % (0-1); Mean Corpuscular Volume 111 fL (80-100); NEUTROPHILS ABSOLUTE AUTO 10.12 K/mm3 (1.96-9.15); NEUTROPHILS PERCENT AUTO 59 % (41-73)
[2021-08-09 23:56] LABS: BAND PERCENT MAN 6 % (0-8); BASOPHILS PERCENT MAN 0 % (0-2); EOSINOPHILS PERCENT MAN 0 % (0-6); LYMPHOCYTES % ATYPICAL MANUAL 1 % (0-0); LYMPHOCYTES ABSOLUTE MAN 0.51 K/mm3 (0.84-5.20); LYMPHOCYTES PERCENT MAN 2 % (21-46); MONOCYTES ABSOLUTE MAN 0.17 K/mm3 (0.16-1.47); MONOCYTES PERCENT MAN 1 % (4-13); NEUTROPHILS ABSOLUTE MAN 16.39 K/mm3 (1.96-9.15); SEG NEUTROPHILS PERCENT MAN 90 % (41-73); TOTAL CELLS COUNTED 100
[2021-08-09 23:59] LABS: Bun/Creatinine Ratio 47.3 (12.0-20.0); Creatinine, Blood 0.93 mg/dL (0.40-1.00); Potassium, Blood 4.6 mmol/L (3.5-5.5)
[2021-08-10] LABS: Albumin, Blood 2.2 g/dL (3.4-5.0); Albumin/Globulin Ratio 0.5 (0.8-1.8); Bilirubin, Total 0.6 mg/dL (0.1-1.0); Calcium, Blood 8.6 mg/dL (8.5-10.1); Globulin, Blood 4.2 g/dL (2.2-4.0); Total Protein, Blood 6.4 g/dL (6.4-8.2); Troponin I 0.106 ng/mL (0.000-0.040)
[2021-08-10 00:33] LABS: Source, Urine Catheter
[2021-08-10 00:35] LABS: Appearance, Urine Clear (Clear); Bilirubin, Urine Neg (Neg); Blood, Urine 1+ (Neg); Color, Urine Amber (P-Yellow); Glucose Qualitative, Urine Neg (Neg); Ketones, Urine Neg (Neg); Leukocyte Esterase, Urine 1+ (Neg); Nitrite, Urine Neg (Neg); Protein, Urine 3+ (Neg); Urobilinogen, Urine 1+ (Normal)
[2021-08-10 00:44] LABS: Amorphous Light (0-Heavy); Bacteria Few /hpf; Hyaline Casts 0-2 /lpf (0-2); Red Blood Cells, Urine 0-2 /hpf (0-2); Squamous Epithelial Cells Not Seen /hpf (Few)
[2021-08-10 02:42] LABS: BASOPHILS ABSOLUTE AUTO 0.05 K/mm3 (0.00-0.23); BASOPHILS PERCENT AUTO 0 % (0-2); EOSINOPHILS ABSOLUTE AUTO 0.01 K/mm3 (0.00-0.68); EOSINOPHILS PERCENT AUTO 0 % (0-6); Hemoglobin 16.2 g/dL (11.5-16.0); IMMATURE GRAN ABSOLUTE AUTO 0.32 K/mm3 (0.00-0.10); IMMATURE GRAN PERCENT AUTO 2 % (0-1); LYMPHOCYTES ABSOLUTE AUTO 0.47 K/mm3 (0.84-5.20); LYMPHOCYTES PERCENT AUTO 2 % (21-46); MONOCYTES ABSOLUTE AUTO 1.97 K/mm3 (0.16-1.47); MONOCYTES PERCENT AUTO 9 % (4-13); Mean Corpuscular HGB 35.6 pg (26.0-34.0); Mean Corpuscular HGB Conc 33.1 g/dL (31.5-36.5); Mean Corpuscular Volume 108 fL (80-100); Mean Platelet Volume 10.5 fL (9.1-12.4); NEUTROPHILS ABSOLUTE AUTO 18.08 K/mm3 (1.96-9.15); NEUTROPHILS PERCENT AUTO 87 % (41-73); NRBC ABSOLUTE 0.27 K/mm3 (0.00-0.02); NRBC Auto 1.3 /100 WBC (0.0-0.2); Platelet Count 297 K/mm3 (150-400); RDW Coefficient Variation 18.6 % (11.7-14.2); Red Blood Cell Count 4.55 M/mm3 (3.80-5.20)
[2021-08-10 02:46] LABS: Bun/Creatinine Ratio 45.4 (12.0-20.0); Calcium, Blood 8.9 mg/dL (8.5-10.1); Creatinine, Blood 0.99 mg/dL (0.40-1.00); Magnesium, Blood 2.1 mg/dL (1.6-2.4); Phosphorus, Blood 4.1 mg/dL (2.5-4.9); Potassium, Blood 4.5 mmol/L (3.5-5.5)
--- NOTE | 2021-08-10 03:44 | NUR ---
TRANSFER/ASSUMED CARE 2305 PT TRANSFERED TO ICU 03 AFTER TRAFFIC RATE ANALYST ON MEDICAL FLOOR. PT TRANSFERED TO BED BY STAFF. PT OPENS EYES AND IS MOANING. SPEECH SLOW TO RESPOND, PT STATES,"I'M AT THE HOSPITAL". PT TRYING TO FOLLOW INSTRUCTIONS BUT VERY WEAK. PT INCONT OF LOOSE BROWN STOOL. DAXA CARE AND ATTENDS CHANGE DONE. [address] FOR ABD/PELVIS. BACK FROM CT. INCONT OF STOOL. 0022 DAXA CARE DONE. MURDOCK CATH 16 FR PLACED. UA SENT. URINE RAJ. UNABLE TO GET BP. CALL TO DR ENRIQUEZ. 0139 CENTRAL LINE PLACED TO RIGHT GROIN BY DR ENRIQUEZ. ATTEMPTED A-LINE TO RIGHT GROIN, UNABLE TO PASS GUIDE WIRE. PT STARTED ON LEVOPHED AT 3 MCQ/MIN TO KEEP MAP BETWEEN 65-70. DR ENRIQUEZ CALLING DAUGHTER FOR UPDATE.
--- NOTE | 2021-08-10 06:20 | NUR ---
CODE 0515 WAS IN ANOTHER ROOM AND NOTICED PT WAS GOING TOI. WHEN I WENT INTO HER ROOM ANOTHER RN AND SOLAR PV INSTALLER WHERE TURNING AND CHANGING HER. PLACED PT ON TO HER BACK AND PT WENT BACK UP TO THE 100'S, BUT PT WAS IN A BLOCK WITH MISSING EVERYOTHER BEAT. PT WAS STILL AWAKE AND FOLLOWING INSTRUCTIONS. 0521 PT BECAME TOI AND NO PULSE NOTED. CODE CALLED AND CPR STARTED. SEE CODE SHEET.
== END 2021-08-10 08:33 | DRG 871 ==
LOC: ER 13:17 → PCU 16:59 → MEDS 08-08 15:30 → ICUE 08-09 22:55
PROVIDERS: Emergency Medicine; Internal Medicine; ADMIT Family Medicine
PROC: 3E033XZ Introduction of Vasopressor into Peripheral Vein, Percutaneous Approach (ICD-10-PCS; principal; 2021-08-10)
PROC: 5A09357 Assistance with Respiratory Ventilation, Less than 24 Consecutive Hours, Continuous Positive Airway Pressure (ICD-10-PCS; 2021-08-10)
PROC: 06HY33Z Insertion of Infusion Device into Lower Vein, Percutaneous Approach (ICD-10-PCS; 2021-08-10)
DX: A41.9 Sepsis, unspecified organism (principal); J18.9 Pneumonia, unspecified organism; D65 Disseminated intravascular coagulation [defibrination syndrome]; R65.21 Severe sepsis with septic shock; E87.2 Acidosis; N17.9 Acute kidney failure, unspecified; E87.1 Hypo-osmolality and hyponatremia; K55.9 Vascular disorder of intestine, unspecified; K52.9 Noninfective gastroenteritis and colitis, unspecified; M79.7 Fibromyalgia; I10 Essential (primary) hypertension; E11.9 Type 2 diabetes mellitus without complications; E78.00 Pure hypercholesterolemia, unspecified; E03.9 Hypothyroidism, unspecified; I25.10 Atherosclerotic heart disease of native coronary artery without angina pectoris; M19.90 Unspecified osteoarthritis, unspecified site; E86.0 Dehydration; F41.8 Other specified anxiety disorders; R74.8 Abnormal levels of other serum enzymes; Z20.822 Contact with and (suspected) exposure to COVID-19; R77.8 Other specified abnormalities of plasma proteins; R57.0 Cardiogenic shock; E87.5 Hyperkalemia; M54.5 Low back pain; G89.29 Other chronic pain; I25.2 Old myocardial infarction; Z78.1 Physical restraint status; Z87.891 Personal history of nicotine dependence; Z95.1 Presence of aortocoronary bypass graft; Z98.890 Other specified postprocedural states; Z88.2 Allergy status to sulfonamides; Z88.8 Allergy status to other drugs, medicaments and biological substances; Z79.82 Long term (current) use of aspirin; Z79.899 Other long term (current) drug therapy
CPT/HCPCS: 31500; 36415; 36556; 36600; 36620; 51702; 71045; 74176; 80048; 80053; 81001; 82803; 82947; 83605; 83735; 83880; 84100; 84132; 84145; 84443; 84484; 85025; 92950; 93005; 93010; 93306; 94660; 94762; 96365; 96375; 99285-25; A9270; C1751; J0330; J0461; J0610; J0696; J0744; J1650; J1815; J1940; J2250; J2543; J2930; J3370; J7030; J7040; J7060; J7120; U0004